=== PATIENT | female | born 1940 | race Caucasian/White ===

== ENCOUNTER → 2017-11-13 10:39 | Outpatient (CLI) | payer MEDICARE, SELFPAY ==
[2017-11-13 12:06] LABS: Add Manual Diff / Slide Review NO; Basophils Percent Auto 1.7 % (0-2); Eosinophils Percent Auto 4.5 % (2-4); Hematocrit 40.7 % (36-46); Hemoglobin 13.7 g/dL (12.0-16.0); Mean Corpuscular HGB Conc 33.7 % (30-36); Mean Corpuscular Hemoglobin 28.1 PG (26-34); Mean Corpuscular Volume 83.4 fL (80-100); Monocytes Percent Auto 7.3 % (3-14); Neutrophils Absolute Auto 3200 /uL (3000-5900); Neutrophils Percent Auto 50.5 % (50-75); Platelet Count 290 X10^3/uL (150-400); Red Blood Cell Count 4.88 X10^6/uL (4.0-5.2); Red Cell Distribution Width 14.2 % (11.6-14.8); White Blood Cell Count 6.3 X10^3/uL (4.5-11.0)
[2017-11-13 12:42] LABS: Carbon Dioxide 28 mmol/L (22-32); Chloride 102 mmol/L (98-107); HEMOLYSIS < 15 (0-50); Potassium 4.1 mmol/L (3.4-5.1); Sodium 142 mmol/L (137-145)
== END ==
PROVIDERS: PCP Physician Assistant; Visit Provider Orthopaedic Surgery
DX: Z01.818 Encounter for other preprocedural examination (principal); M16.0 Bilateral primary osteoarthritis of hip; Z01.812 Encounter for preprocedural laboratory examination
CPT/HCPCS: 36415; 80051; 85025; 93005

== ENCOUNTER 2017-12-08 06:04 | Inpatient (IN) | payer MEDICARE, SELFPAY ==
[2017-11-27 11:01] VITALS: BMI 31.8
[2017-12-08] VITALS (16 sets, daily range): BP systolic 94–173; BP diastolic 48–77; PULSE 50–78; RESP 12–19; TEMP 35.6–36.7; O2SAT 92–99; BMI 31.8
[2017-12-08] MEDS: LACTATED RINGERS 1,000 ML 42 ML IV (06:50)
[2017-12-08] MEDS: CELECOXIB 200 MG CAPSULE PO (07:09)
[2017-12-08] MEDS: PREGABALIN 75 MG CAPSULE PO (07:09)
[2017-12-08] MEDS: ACETAMINOPHEN 325 MG TABLET 975 MG PO ×3 (07:09→21:49)
--- NOTE | 2017-12-08 07:45 | DI.RAD.S_ITS ---
PROCEDURE: XR PELVIS 1-2V INDICATIONS: prosthesis placement TECHNIQUE: 1 view of the lower pelvis acquired. COMPARISON: [facility], , PELVIS 1 OR 2 VIEWS, 01/07/2011, 14:51. FINDINGS: Bones: Patient is status post left hip arthroplasty, with hardware components in expected positions. The hip joint appears congruent. The visualized bony structures appear intact. Prior right hip arthroplasty stable time. Soft tissues: Overlying postoperative changes are noted. No suspicious soft tissue densities. IMPRESSION: Normal postoperative appearance after left total hip arthroplasty, stable appearing previously present right total hip arthroplasty. Dictated by: Eligio Ruiz M.D. on 12/08/2017 at 10:25 Approved by: Eligio Ruiz M.D. on 12/08/2017 at 10:25
--- NOTE | 2017-12-08 07:49 | PM.PREOP ---
Pre-operative Note Interval Note Pre-op Check: Yes History & Physical Reviewed by Physician Changes: No
[2017-12-08] MEDS: CEFAZOLIN 2 GM/100 ML FROZ.PIGGY IV ×3 (07:50→23:58)
[2017-12-08] MEDS: TRANEXAMIC ACID 1,000 MG VIAL 1000 MG INJ ×2 (08:20→09:22)
--- NOTE | 2017-12-08 08:26 | SUR.OPER ---
Lateral on padded OR bed. Gel axillary roll. Arms secured on padded armboard with pillow supporting top arm. Padded hip positioner braces x4 - anterior and posterior chest and pelvis. Additional gel pad used anterior pelvis. Gel pad under bottom leg from knee to foot and secured with tape over sheet.
[2017-12-08] MEDS: BUPIVACAINE 0.25% W/ EPI VIAL 50 ML INJ (08:35)
--- NOTE | 2017-12-08 09:44 | P.OP_ITS ---
Operative Date/Time/Diagnoses Date of procedure: 12/08/17 Time of procedure: 09:39 Pre-op diagnosis: Left hip degenerative joint disease Post-op diagnosis: same Procedure & Clinicians Procedure: Left total hip arthroplasty (CPT code 22768 with design assistant) Same procedure as scheduled: Yes Indications: Patient is an 77-year-old female with severe left hip DJD. The patient has pain with activities and at rest, limited ambulation and activity tolerance, difficulties with ADLs, and failure of conservative treatment. We have discussed the nature of condition, treatment options, risks and benefits, and patient elects to proceed with total hip arthroplasty and gives informed consent. Surgeon: Luis Fernando Ewing Rehabilitation Coordinator: Rubina Villa Anesthesia Type: General and Spinal Operative Notes Closure Type: primary Specimen(s): none sent Implants & Drains: Acetabulum: Villarreal [employer] Nephew R3 acetabular component size 54 mm Femoral component: Villarreal [employer] Nephew Synergy stem size 13 with high offset Femoral head: 36 mm + 0 cobalt chrome Estimated Blood Loss (mL): 100 Blood products transfused: none Procedure in detail: After satisfaction induction of anesthetic, and administration of IV antibiotics, the patient was positioned in the lateral decubitus position with all bony prominences well padded and pelvic position secured using a hip spring inspector positioning device. Left hip and lower extremity prepped and draped in the usual sterile fashion, 1st dose of intravenous tranexamic acid was administered, then a longitudinal incision was created centered over the greater trochanter and carried sharply through the skin and subcutaneous tissues down to the fascia kavita which was divided longitudinally and retracted with a Charnley retractor. External rotators visualize, cut, tagged, and retracted posteriorly, then the capsule was cut in a T-type fashion with the corners tagged and retracted. Hip was dislocated and femoral neck cut made according to preoperative templating. Acetabular retractors then placed, and the acetabular labrum and osteophytes were excised. The acetabulum was then sequentially reamed to 53 mm with an excellent circumferential ream and fit with the trial. The trial component was removed and a permanent size 54 mm Villarreal [employer] Nephew R3 acetabular component was selected, positioned, and impacted with satisfactory position and fixation achieved. Permanent liner was then inserted with the elevated lip directed posteriorly. Soft tissue then removed off the lateral femoral neck in the lateral neck was entered using a box osteotome. T-handled reamers placed down the canal followed by sequential broaching to 13 with the final broach left in place for trial reduction which demonstrated excellent leg length, range of motion, and stability characteristics with a 36 mm +0 trial ball. The trial and broach were removed, and a permanent size 13 high offset Villarreal and Nephew Synergy stem was selected and inserted with excellent position and fixation achieved. Another trial reduction yielded the above characteristics so the trial ball was exchanged for a permanent 36 mm +0 cobalt chrome ball. The hip was irrigated and reduced and excellent leg length range of motion and stability characteristics were achieved and maintained. The hip was copiously irrigated, and the capsule repaired with #2 Ethibond, and the piriformis was repaired back to the greater trochanter with the same. Fascia kavita closed with interrupted #1 Ethibond sutures, and the subcutaneous tissues were closed in 2 layers of 0 Vicryl and 2 0 Vicryl. Skin was closed with eddy and sterile dressings applied. Second dose of tranexamic acid was administered intravenously, and the anesthetic was terminated. Complications: none Condition: stable Disposition: PACU Plan for aftercare: Patient will be admitted to the acute care [facility], and anticipate discharge on postop day 1-2 with follow-up in office in 10-14 days. Outpatient physical therapy will be arranged and patient will continue to observe posterior hip precautions. Patient will continue use of postoperative Lovenox for 10 days postop.
--- NOTE | 2017-12-08 10:22 | SUR.PHASEI ---
REPORT CALLED TO EDDIE HURLEY ON ACUTE CARE
--- NOTE | 2017-12-08 11:14 | PC.NURSE ---
Addendum entered by Flor Wallace R.N. 12/08/17 15:45: Pt has been too drowsy to complete admission assessment through this shift. 2L NC for desating, Pt is able to hold a conversation this afternoon, keep eyes open longer, denies pain, updated Oncoming RN of admission assessment. Updated family for POC, bladder scan for 170mls after no void this afternoon Original Note: 1032- Pt arrived to floor, 2L O2 via NC Spo2 96% RA, drowsy, Spinal effective for pain relief, diminished sensation to BLE, t10 level. Sipping on water, L hip bulky dressing CDI. IVF infusing. Denies nausea.
[2017-12-08] MEDS: LACTATED RINGERS 1,000 ML 125 ML IV (11:18)
--- NOTE | 2017-12-08 16:54 | PT.IIE ---
Current Diagnoses Unilateral primary osteoarthritis, left hip (12/08/17) Surgery Performed Operation Date: 12/08/17 07:45 Actual Procedures p Total Hip Arthroplasty(Left) - Luis Fernando Ewing MD Surgical History (Last Updated 11/27/17 @ 11:26 by Rosina Meza RN) Hx of appendectomy (Acute) Hx of tonsillectomy (Acute) Hx of tubal ligation (Acute) History of total right hip arthroplasty (Resolved 12/2010) Hx of cataract surgery (Resolved 05/2016) Hx of surgical procedure (Resolved 09/2012) Status post tubal ligation Medical History (Last Updated 11/27/17 @ 11:26 by Rosina Meza RN) Anxiety (Acute) Cyst (Acute) Cyst of left kidney (Acute) Edema (Acute) GERD (gastroesophageal reflux disease) (Acute) Hiatal hernia (Acute) Low back pain (Acute) Numbness (Acute) Pneumonia (Acute) Tingling (Acute) UTI (urinary tract infection) (Acute) Asthma (Chronic) Depression (Chronic) Hyperlipemia (Chronic) Insomnia (Chronic) Osteopenia (Chronic) Chickenpox (Resolved) Measles (Resolved) Mumps (Resolved) Physical Therapy Inpatient Evaluation/Re-Eval M1 PT/OT-IP Prior Functional Status Start: 12/08/17 16:42 Freq: NEEDED Status: Active Protocol: Document 12/08/17 16:42 [facility] (Rec: 12/08/17 16:54 [facility] [id number]) Medical Review Prior Functional Status Medical History Reviewed Yes Diet/Fluid Consistency Regular Communication WNL Mobility and Gait indep w/occasional use of cane Activities of Daily Living and IADL's Indep Social History Household Members children Living Arrangements House Number of Floors (Floors) One Floor Number of Stairs To Enter/Railing? Ramp entry Home Environment High Toilet Tub/Shower Doors Home Equipment Front Wheel Walker Tub Transfer Bench Long Handled Sponge Long Handled [place]oe [place] Silver Wrapper Sock Aid Additional Social History Comment Pt has friend (Jacqueline) staying for 2 weeks and family is local and will help as needed. M2 PT-IP Current Condition Start: 12/08/17 16:42 Freq: NEEDED Status: Active Protocol: Document 12/08/17 16:42 [facility] (Rec: 12/08/17 16:54 [facility] [id number]) Physical Therapy Current Condition Current Condition Evaluation Date 12/08/17 Treatment Diagnosis L AJ Onset Date 12/08/17 Precautions Posterior Hip Precautions No Hip Flexion > 90 degrees No Hip Internal Rotation No Hip Adduction Weight Bearing Status Weight Bearing Status Weight Bear as Tolerated M3 PT-IP Subjective Start: 12/08/17 16:42 Freq: NEEDED Status: Active Protocol: Document 12/08/17 16:42 [facility] (Rec: 12/08/17 16:54 [facility] [id number]) Subjective Physical Therapy Visit Type Type Initial Evaluation Visit Start Time 15:45 Visit Stop Time 16:30 Total Visit Minutes 45 Number of STUDIO MUSICIAN Visits 0 Physical Therapy Visit Comments Patient Comments Pt agreeable to get up Patient Goals Hoping to go home Friday Therapy Pain Assessment Pain When Pain Assessed At Rest Pain Present Pain Present Denied Pain M4 PT-IP Mobility and Gait Start: 12/08/17 16:42 Freq: NEEDED Status: Active Protocol: Document 12/08/17 16:42 [facility] (Rec: 12/08/17 16:54 [facility] [id number]) PT-Bed Mobility Assessment Supine to Sit Supine to Sit Standby Assistance Sit to Supine Sit to Supine Standby Assistance Scooting Scooting to Edge of Bed Standby Assistance Scooting Up and Down in Bed Contact Guard Assistance PT-Transfer Assessment Sit to and From Stand Sit to and from Stand Minimal Assistance Equipment Transfer Assistive Device Gait Belt Front Wheeled Walker Orthotic/Prosthetic Devices or Brace: No Comments Mobility Comments Did not transfer d/t pt feeling dizzy. Pt returned sitting with min A PT-Balance Assessment Sitting Balance and Reactions Static Sitting Balance Ability Good Dynamic Sitting Balance Ability Fair Standing Balance and Reactions Static Standing Balance Ability Poor Dynamic Standing Balance Ability Poor M5 PT-IP Objective Assessments Start: 12/08/17 16:42 Freq: NEEDED Status: Active Protocol: Document 12/08/17 16:42 [facility] (Rec: 12/08/17 16:54 [facility] [id number]) Orientation Orientation/Cognition Level of Alertness Alert Gross Range of Motion Lower Extremity ROM Assessment Left Impaired Strength Lower Extremity Strength Assessment Left Impaired Sensation Assessment Sensation Gross Sensation WNL Light Touch Intact Muscle Tone Muscle Tone WNL No M6 PT-IP Treatment Start: 12/08/17 16:42 Freq: NEEDED Status: Active Protocol: Document 12/08/17 16:42 [facility] (Rec: 12/08/17 16:54 [facility] [id number]) Physical Therapy Treatment Exercises Exercises Ankle Pumps Gluteal Sets Quad Sets Education Education Provided Precautions Weight Bearing Status Post-Op Packet Safety M7 PT-IP Assessment and Plan Start: 12/08/17 16:42 Freq: NEEDED Status: Active Protocol: Document 12/08/17 16:42 [facility] (Rec: 12/08/17 16:54 [facility] [id number]) PT Summary Assessment and Plan Potential Rehabilitation Potential Excellent Status of Condition at Evaluation Unstable Summary Impairments ROM Strength Bed Mobility Transfers Gait Activity Tolerance Assessment Summary Pt is motivated to progress with her mobility, but had 100cc of emesis (reported to RN) and lightheadedness with mobility. Supine BP 129/58 to seated 144/97 to 151/73 steated then 138/70 in supine. Goals Bed Mobility Goal Independent Transfer Goal Standby Assistance Gait Goal Standby Assistance Gait Distance 150ft Days to Meet Goals 3 Frequency of Treatment Frequency Of Treatment Twice a Day Treatment Plan Physical Therapy Treatment Plan Bed Mobility Training Transfer Training Gait Training Therapeutic Exercise Neuromuscular Re-ed Other Recommendations and Next Treatment Advance gait as tolerated; Focus review all exercises Recommendations To Nursing Amount of Assist Needed 1 Person Assist Discharge Recommendations PT Discharge Recommendations Home with Assistance Outpatient PT
[2017-12-08] MEDS: DOCUSATE 100 MG CAPSULE PO (21:49)
[2017-12-08] MEDS: ASPIRIN EC 81 MG TABLET PO (21:49)
[2017-12-08] MEDS: PRAMIPEXOLE 0.125 MG TABLET PO (21:50)
[2017-12-09] VITALS (7 sets, daily range): BP systolic 106–133; BP diastolic 48–70; PULSE 65–71; RESP 14–18; TEMP 36.4–36.7; O2SAT 92–98
--- NOTE | 2017-12-09 00:21 | PC.NURSE ---
Addendum entered by James Isaac R.N. 12/09/17 01:35: 0140: Awake, had large emesis of undigested food. Assisted to wash up; clean gown on. Original Note: [employer] Developer Note: 2350: Awake, denies pain in lt hip area. Vital signs stable. Dressing to lt hip cdi. Pt denies numbness or tingling in legs, and is able to flex ankles and knees, and hips. Assisted to reposition. SCDs on. Fresh ice to lt hip.
[2017-12-09 06:39] LABS: Hematocrit 38.1 % (36-46); Hemoglobin 12.6 g/dL (12.0-16.0)
[2017-12-09] MEDS: PANTOPRAZOLE 20 MG TABLET PO (06:45)
--- NOTE | 2017-12-09 07:51 | P.PN_ITS ---
Subjective Date Patient Seen: 12/09/17 Interval history: Patient seen bedside s/p L. AJ POD #1. Patient is doing well , her pain is well controlled but she has not worked with physical therapy yet. Exam Vital Signs (past 8 hours): - 12/09/17 00:18 12/09/17 04:51 Temperature 97.5 F L 97.6 F Pulse Rate 66 65 Respiratory Rate 16 16 Blood Pressure 133/70 108/59 L Pulse Oximetry 98 96 Oxygen Delivery Method Nasal Cannula Oxygen Flow Rate 2 Narrative Exam Narrative: WDWN NAD A&Ox3. Left hip dressing CDI, patient is NVI with full ROM of the ankle and knee. Calf is soft and compressible. Objective Labs Result Diagrams: 12/09/17 06:30 Labs: Laboratory Results - last 24 hr 12/09/17 06:30 Hgb 12.6 Hct 38.1 Assessment & Plan Post-op Postoperative Procedures Operation Date: 12/08/17 07:45 Actual Procedures Side Surgeon p Total Hip Arthroplasty Left Luis Fernando Ewing MD 1. Continue pain management, VTE prophylaxis 2. Continue PT 3. Probable discharge tomorrow if doing well.
--- NOTE | 2017-12-09 09:15 | PT.IPTN ---
Current Diagnoses Unilateral primary osteoarthritis, left hip (12/08/17) Surgery Performed Operation Date: 12/08/17 07:45 Actual Procedures p Total Hip Arthroplasty(Left) - Luis Fernando Ewing MD Physical Therapy Treatment Note M2 PT-IP Current Condition Start: 12/08/17 16:42 Freq: NEEDED Status: Active Protocol: Document 12/08/17 16:42 [facility] (Rec: 12/08/17 16:54 [facility] [id number]) Physical Therapy Current Condition Current Condition Evaluation Date 12/08/17 Treatment Diagnosis L AJ Onset Date 12/08/17 Precautions Posterior Hip Precautions No Hip Flexion > 90 degrees No Hip Internal Rotation No Hip Adduction Weight Bearing Status Weight Bearing Status Weight Bear as Tolerated M3 PT-IP Subjective Start: 12/08/17 16:42 Freq: NEEDED Status: Active Protocol: Document 12/09/17 09:15 AB (Rec: 12/09/17 12:24 AB [id number]) Subjective Physical Therapy Visit Type Type Treatment Note Visit Start Time 09:15 Visit Stop Time 10:00 Total Visit Minutes 45 Number of CRYPTOGRAPHIC VULNERABILITY ANALYST Visits 0 Physical Therapy Visit Comments Patient Comments pt agreeable to do PT Therapy Pain Assessment Pain When Pain Assessed At Rest Pain Present Pain Present Pain Reported Location Left Hip Intensity 1 Scale Used Numeric (1 - 10) Pain Management Techniques Apply Cold Re-positioning Timing of Activity with Medications M4 PT-IP Mobility and Gait Start: 12/08/17 16:42 Freq: NEEDED Status: Active Protocol: Document 12/09/17 09:15 [facility] (Rec: 12/09/17 12:24 AB [id number]) PT-Bed Mobility Assessment Supine to Sit Supine to Sit Standby Assistance Scooting Scooting to Edge of Bed Standby Assistance PT-Transfer Assessment Sit to and From Stand Sit to and from Stand Minimal Assistance Equipment Transfer Assistive Device Gait Belt Front Wheeled Walker Orthotic/Prosthetic Devices or Brace: No Transfers Transfer Destination Toilet Transfer Technique pt ambulated to the toilet using FWW Transfer Ability Level of Assist Minimal Assistance Comments Mobility Comments pt c/o dizziness upon sitting on EOB but decreased after a few minutes. pt stated that she has vertigo and has dizziness all the time. BP: 117/57 sitting on EOB. pt ambulated to the toilet using FWW min A and cues to maintain hip precautions. pt required min A for sit to stand from the toilet using grab bar to assist and cues. pt ambulated using fWW min A towards the sink and was able to maintain standing balance CGA while completing handwashing. Gait Assessment Gait Gait Assistance Required: Minimum Assistance Distance (Feet) 50 Able to Maintain Weight Bearing Status Yes During Gait Assistive Devices Assistive Device Gait Belt Front Wheeled Walker Orthotic/Prosthetic Devices or Brace: No Gait Deviations General Gait Pattern Antalgic Decreased Stride Length Decreased Feet Clearance Factors Limiting Gait Function Factors Limiting Gait Function Decreased Activity Tolerance Decreased Strength Difficulty Following Directions Limited Range of Motion Pain Poor Balance Poor Safety Awareness Comments Gait Comments pt completed ambulation in hallway using FWw ~ 50 ft CGA to min A and cues. presents with antalgic gait with decrease ghazal and requires cues to maintain hip precautions especially with turns. M5 PT-IP Objective Assessments Start: 12/08/17 16:42 Freq: NEEDED Status: Active Protocol: Document 12/08/17 16:42 [facility] (Rec: 12/08/17 16:54 [facility] [id number]) Orientation Orientation/Cognition Level of Alertness Alert Gross Range of Motion Lower Extremity ROM Assessment Left Impaired Strength Lower Extremity Strength Assessment Left Impaired Sensation Assessment Sensation Gross Sensation WNL Light Touch Intact Muscle Tone Muscle Tone WNL No M6 PT-IP Treatment Start: 12/08/17 16:42 Freq: NEEDED Status: Active Protocol: Document 12/09/17 09:15 AB (Rec: 12/09/17 12:24 AB [id number]) Physical Therapy Treatment Education Education Provided Precautions Weight Bearing Status Safety M7 PT-IP Assessment and Plan Start: 12/08/17 16:42 Freq: NEEDED Status: Active Protocol: Document 12/09/17 09:15 AB (Rec: 12/09/17 12:24 AB [id number]) PT Summary Assessment and Plan Potential Rehabilitation Potential Good Summary Impairments Pain ROM Strength Balance Coordination Sensation Tone Cognition Bed Mobility Transfers Gait Activity Tolerance Progress Towards Goals Slow Progress due to Activity Tolerance Assessment Summary pt rquiring one person assist with mobility but will likely improve during hospital stay. stated that her friend can stay with her for ~ 2 weeks and she also has her son in the evenings to assit her. pt is also set up for outpt PT. Goals Bed Mobility Goal Independent Transfer Goal Standby Assistance Gait Goal Standby Assistance Gait Distance 150ft Days to Meet Goals 3 Frequency of Treatment Frequency Of Treatment Twice a Day Treatment Plan Physical Therapy Treatment Plan Bed Mobility Training Transfer Training Gait Training Therapeutic Exercise Neuromuscular Re-ed Other Recommendations and Next Treatment ambulation Focus Recommendations To Nursing Amount of Assist Needed 1 Person Assist Discharge Recommendations PT Discharge Recommendations Home with Assistance Outpatient PT
[2017-12-09] MEDS: ACETAMINOPHEN 325 MG TABLET 975 MG PO ×3 (09:34→21:52)
[2017-12-09] MEDS: ASPIRIN EC 81 MG TABLET PO ×2 (09:35→20:14)
[2017-12-09] MEDS: DOCUSATE 100 MG CAPSULE PO (09:35)
[2017-12-09] MEDS: ENOXAPARIN 40 MG/0.4 ML SYRINGE SUBCUT (09:35)
--- NOTE | 2017-12-09 14:25 | PT.IPTN ---
Current Diagnoses Unilateral primary osteoarthritis, left hip (12/08/17) Surgery Performed Operation Date: 12/08/17 07:45 Actual Procedures p Total Hip Arthroplasty(Left) - Luis Fernando Ewing MD Physical Therapy Treatment Note M2 PT-IP Current Condition Start: 12/08/17 16:42 Freq: NEEDED Status: Active Protocol: Document 12/08/17 16:42 [facility] (Rec: 12/08/17 16:54 [facility] [id number]) Physical Therapy Current Condition Current Condition Evaluation Date 12/08/17 Treatment Diagnosis L AJ Onset Date 12/08/17 Precautions Posterior Hip Precautions No Hip Flexion > 90 degrees No Hip Internal Rotation No Hip Adduction Weight Bearing Status Weight Bearing Status Weight Bear as Tolerated M3 PT-IP Subjective Start: 12/08/17 16:42 Freq: NEEDED Status: Active Protocol: Document 12/09/17 14:25 AB (Rec: 12/09/17 16:23 AB [id number]) Subjective Physical Therapy Visit Type Type Treatment Note Visit Start Time 14:25 Visit Stop Time 14:45 Total Visit Minutes 20 Number of AUTOMOTIVE PARTS PERSON Visits 0 Physical Therapy Visit Comments Patient Comments pt agreeable to do PT Therapy Pain Assessment Pain When Pain Assessed At Rest Pain Present Pain Present Pain Reported Location Left Hip Intensity 4 Scale Used Numeric (1 - 10) Pain Management Techniques Apply Cold Re-positioning Timing of Activity with Medications M4 PT-IP Mobility and Gait Start: 12/08/17 16:42 Freq: NEEDED Status: Active Protocol: Document 12/09/17 14:25 AB (Rec: 12/09/17 16:23 AB [id number]) PT-Bed Mobility Assessment Supine to Sit Supine to Sit Standby Assistance Sit to Supine Sit to Supine Standby Assistance Scooting Scooting to Edge of Bed Standby Assistance PT-Transfer Assessment Sit to and From Stand Sit to and from Stand Standby Assistance Contact Guard Assistance Use of Upper Extremities Equipment Transfer Assistive Device Bed Rail Front Wheeled Walker Orthotic/Prosthetic Devices or Brace: No Comments Mobility Comments pt completed sit <>stand x 5 reps with initial cues for techniques and safety to maintain hip precautions but able to complete with SBA without cues towards end of reps. Gait Assessment Gait Gait Assistance Required: Standby Assistance Distance (Feet) 75 Able to Maintain Weight Bearing Status Yes During Gait Assistive Devices Assistive Device Gait Belt Front Wheeled Walker Orthotic/Prosthetic Devices or Brace: No Gait Deviations General Gait Pattern Antalgic Decreased Stride Length Decreased Feet Clearance Factors Limiting Gait Function Factors Limiting Gait Function Decreased Activity Tolerance Decreased Strength Difficulty Following Directions Limited Range of Motion Pain Poor Balance Poor Safety Awareness M5 PT-IP Objective Assessments Start: 12/08/17 16:42 Freq: NEEDED Status: Active Protocol: Document 12/08/17 16:42 LR (Rec: 12/08/17 16:54 LR [id number]) Orientation Orientation/Cognition Level of Alertness Alert Gross Range of Motion Lower Extremity ROM Assessment Left Impaired Strength Lower Extremity Strength Assessment Left Impaired Sensation Assessment Sensation Gross Sensation WNL Light Touch Intact Muscle Tone Muscle Tone WNL No M6 PT-IP Treatment Start: 12/08/17 16:42 Freq: NEEDED Status: Active Protocol: Document 12/09/17 14:25 AB (Rec: 12/09/17 16:23 AB [id number]) Physical Therapy Treatment Education Education Provided Precautions Weight Bearing Status Safety M7 PT-IP Assessment and Plan Start: 12/08/17 16:42 Freq: NEEDED Status: Active Protocol: Document 12/09/17 14:25 AB (Rec: 12/09/17 16:23 AB [id number]) PT Summary Assessment and Plan Potential Rehabilitation Potential Good Summary Impairments Pain ROM Strength Balance Cognition Bed Mobility Transfers Gait Activity Tolerance Progress Towards Goals Progressing Toward Goals Assessment Summary pt progressing with mobility but continues to require occasional cues to maintain hip precautions. pt plans to go home with friend/son to assist her and has outpt PT set up. Goals Bed Mobility Goal Independent Transfer Goal Standby Assistance Gait Goal Standby Assistance Gait Distance 150ft Days to Meet Goals 3 Frequency of Treatment Frequency Of Treatment Twice a Day Treatment Plan Physical Therapy Treatment Plan Bed Mobility Training Transfer Training Gait Training Therapeutic Exercise Neuromuscular Re-ed Other Recommendations and Next Treatment ambulation Focus Recommendations To Nursing Amount of Assist Needed 1 Person Assist Discharge Recommendations PT Discharge Recommendations Home with Assistance Outpatient PT
--- NOTE | 2017-12-09 14:39 | CM.DANOTE ---
DCP/Assessment: Reviewed chart. Patient is a 77yr old female admitted to [facility] for left AJ performed by Dr. Ewing on 12-08-17. Primary payor is 1)Medicare 2)[facility]. PCP is BILLY Nam. Met with patient explained CM/SW role. Patient's granddaughter/Tamera at bedside. Patient reports that she plans to d/c home when medically stable. Patient hopeful that she can leave tomorrow 12-10-17. Patient has family support in the home at time of d/c. Patient has FWW and does not currently anticipate any d/c planning needs. Patient has outpatient therapy scheduled at [facility] in [place]. Notified patient/family would continue to follow if d/c planning needs were to arise. Patient aware and agreeable. P: Home when stable. Discharge Planning/Care Management CM Discharge Assessment Start: 12/09/17 14:36 Freq: Status: Active Protocol: Document 12/09/17 14:36 KJS (Rec: 12/09/17 14:39 KJS [id number]) Discharge Planning Assessment Assigned Latex Thread Machine Operator CE Mccall Contact Information Erasmo Galvan (son) [phone] or [phone] Advance Directives? Yes Advance Directives on File Yes History Provided By Patient Family Member Has Patient been admitted in last 30 No days? Prior Living Arrangements House Household Members children Independent with ADL's Yes Is patient alert and oriented? Yes Caregiver for Another No DME Already Rented / Owned FWW / Walker Patient/Family Preference OP PT Therapy Barriers to Discharge No Discharge Plan Home Transportation Arrangement Family to provide transport. Referrals Initiated None needed Whiteboard Updated in Patient Room with Yes name and ext. # of Latex Thread Machine Operator Review Status In Process Please Provide Date Initial DC 12/09/17 Assessment Was Performed Next Review Type Continued Stay Review Pre-Anesthesia Assessment Start: 11/27/17 11:01 Freq: Status: Active Protocol: Document 11/27/17 11:01 CAB (Rec: 11/27/17 11:39 CAB [id number]) Pre-Anesthesia Assessment Patient Also Known As (ARACELI) Loan Patient Information Reviewed Via Phone Assessment Assessment Completed With Patient Lab Results BMP/CMP CBC EKG Primary Care Provider Betty Yost Seen Specialist in Last 12 Months Yes Specialist Seen Orthopedist Primary Language Lao Automotive Diagnostic Technician Required No Height 160.02 cm Weight 81.647 kg Body Mass Index (BMI) 31.8 Hearing Ability Hard of Hearing Visual Assist Glasses Dentition Type Teeth, Natural Present Teeth, Broken Teeth, Missing Barriers to Learning Auditory Other Aids No Hx Anesthesia Reactions No Hx Family Anesthesia Reaction No Hx Malignant Hyperthermia No Hx Blood Transfusions No Anesthesia Review Requested No Tool Shaper Set Up Operator No alcohol intake current alcohol intake frequency a few times a month Smoking Status Former smoker Smoking cigarettes per day 2 how long ago did patient quit smoking Quit 1987 Substance Use Type does not use Pain Present Pain Reported Musculoskeletal Symptoms Abnormal Gait Back Pain Difficulty Walking Joint Pain Muscle Spasms Tingling History of Falling (Recent or History of Yes ) Patient is completely paralyzed or No completely immobile Prosthesis or Orthotic Device Cane Mental Status Oriented to own ability Is patient on oxygen? No Does patient have SANCHEZ/SOB Yes: SANCHEZ r/t asthma Hx Sleep Apnea No Suspected Sleep Apnea No Hx Chest Pain No Hx SOB Yes: SANCHEZ r/t asthma, shallow breather Hx Syncope or Dizziness Yes: Intermittent Vertigo Anti-Coagulant Therapy No Has a Treatment Coordinator No Cardiac Testing No Hx Pacemaker/ICD No Pacemaker Rep Required? No Cardiac Clearance Received Not Applicable Diet Type At Home Regular dysphagia No Bladder Pattern Nocturia Urinary Catheter Present No Hx Urinary Self Catheterization No Comment Hx of UTIs Diabetes No Patient No Lactating No Hx Drug Resistant Organism No Presence of External or Internal Medical Yes Devices Comment Right hip prosthesis Have you traveled outside the [facility] in the last 30 days? Marital Status / Lives With children Prior Living Arrangements House Number of Floors (Floors) One Floor Number of Stairs To Enter/Railing? 2 stairs, ramp in place Support System Child/Children Family Friend(s) Does the Patient Have Assistance After Yes Surgery Patient Discharge Plan Description Return Home Comment Friend will stay w/pt upon DC, supportive children in area Feels Safe in Current Environment Yes Been Physically Hurt or Threatened By a No Person in Current Environment Do you have thoughts of harming yourself None or others? Are you currently considering suicide? No Do you have a plan to hurt yourself or No Plan others? Do You Have Any Spiritual Beliefs That No May Affect Your HC Choices? Do You Have Any Cultural Practices That No May Affect Your HC Choices? Spiritual Referral None Comment Religious Who Can We Speak to About Patient's Care Family, friends Identifying Code for Release of Patient Declines to issue Information Health Care Proxy/Next of Kin Lety (daughter in-law), Makeda Delvalle (friend) Health Care Proxy Phone Number Lety: [phone], [facility]: [phone] Emergency Contact Name Lety (daughter in-law), Makeda Delvalle (friend) Emergency Contact Phone Number Lety: [phone], [facility]: [phone] Advance Directives? Yes Advance Directives on File Yes Power of Ceiling Insulation Blower Yes Power of Ceiling Insulation Blower Name Lety (daughter in-law)Makeda (friend) Power of Ceiling Insulation Blower Phone Number Lety: [phone], [facility]: [phone] PAC Instructions Do not shave/clip surgical site Durable medical equipment Medications to take/avoid Nasal antibiotic No ETOH/petroleum product on skin DOS NPO Pre-surgical wash Sturdy shoes/comfortable clothes Do not bring valuables and remove jewelry
[2017-12-09] MEDS: diphenhydrAMINE 25 MG TABLET PO (14:57)
--- NOTE | 2017-12-09 17:47 | PC.NURSE ---
Assumed care of pt form outgoing shift at 1500 this day. Pt uses call light. pt best friend, Jacqueline in room and she will be staying with pt for two weeks after d/c. pt plans to d.c tomorrow. Pt mobility is very good. walking with PT and uses walker. Pt calls, makes needs known. Pt feeling less itchy but face is still flushed at this time. Pt compliant with nursing staff and welcoming to student nurses. will continue to monitor pt for safety. bed alarm on, side rail upx3. encouraged IS use.
[2017-12-09] MEDS: HYDROCODONE/ACET 5/325 TABLET 1 TAB PO (20:12)
[2017-12-09] MEDS: PRAMIPEXOLE 0.125 MG TABLET PO (20:14)
[2017-12-10 00:03] VITALS: BP 152/66; PULSE 71; RESP 18; TEMP 36.4; O2SAT 94
[2017-12-10] MEDS: HYDROCODONE/ACET 5/325 TABLET 1 TAB PO ×2 (01:26→06:07)
[2017-12-10] MEDS: diphenhydrAMINE 25 MG TABLET PO (01:30)
--- NOTE | 2017-12-10 03:54 | PC.NURSE ---
A&OX3. 93% RA. L. hip dressing cdi. pt medicated with 1 tab norco for pain 08/03. pt c/o of some itching around her torso, face is still a little flushed, i gave her 1 tab of benadryl. 1pa to the BR. call light in reach. bed alarm active.
[2017-12-10 04:45] VITALS: BP 120/70; PULSE 60; RESP 15; TEMP 36.4; O2SAT 93
[2017-12-10] MEDS: PANTOPRAZOLE 20 MG TABLET PO (06:05)
--- NOTE | 2017-12-10 07:28 | PM.DS.1 ---
History of Present Illness Date Patient Seen: 12/10/17 Time Patient Seen: 07:18 Chief complaint: total hip arthroplasty left [id number] Narrative: Patient is an 77-year-old female with severe left hip DJD. The patient has pain with activities and at rest, limited ambulation and activity tolerance, difficulties with ADLs, and failure of conservative treatment. We have discussed the nature of condition, treatment options, risks and benefits, and patient elects to proceed with total hip arthroplasty and gives informed consent. Patient is seen bedside. Discharge Providers Date of admission: 12/08/17 06:04 Primary care physician: Betty Yost PA-C Consults: 12/08/17 10:41 Consult to Discharge Planning Routine Comment: Consult to Physical Therapy Evaluate & Treat Comment: Physician Instructions: post op AJ protocol Consult to Respiratory Therapy Evaluate & Treat Comment: Physician Instructions: Evaluate and treat Discharge provider: Marj Reis PA-C Discharge Date: 12/10/17 Summary Discharge Diagnosis: Left hip degenerative joint disease Hospital Course: Patient admitted status post L total hip arthroplasty with Dr. Ewing on 12/08/17. Patient tolerated procedure well with no major complications. Patient transferred to the floor and seen by PT who recommended she be discharged home with outpatient PT. Her pain was well controlled with [place]. Patient is stable and ready for discharge on 12/10/17. Her son and friend is home to assist her upon discharge. Calfs are soft, compressible and nontender bilaterally. Cover site dressing on. Status at Discharge Functional status at discharge: uses cane/walker Overall status at discharge: patient is progressing back to baseline Time Spent with Patient Less than 30 minutes Exam Vital Signs (past 8 hours): - 12/10/17 00:03 12/10/17 04:45 Temperature 97.6 F 97.6 F Pulse Rate 71 60 Respiratory Rate 18 15 Blood Pressure 152/66 H 120/70 Pulse Oximetry 94 93 Oxygen Delivery Method Room Air Oxygen Flow Rate 0 Narrative Exam Narrative: Patient is AOx3. She is laying in bed comfortably without any signs of distress. Radial and dorsalis pedis pulses 2+ and symmetric. Sensation to light touch intact in LE bilaterally. Muscle strength adequate in dorsiflexion, plantarflexion and cloth examiner bilaterally. L Hip dressing is intact with minimal drainage. Calfs are soft, non tender and compressible bilaterally. Patient reports that her pain is manageable at this time. She reports that she would like to go home today; friend and son is home to assist her. She was seen by PT yesterday. Patient is [facility] and reports having filled prescriptions at home. She denies any SOB, chest pain, nausea, vomiting, fever or chills. Objective Labs Result Diagrams: 12/09/17 06:30 Discharge Plan Discharge Plan Patient Disposition: Home Discharge comment: continue use of postoperative Lovenox Discharge Med Rec/Prescriptions Prescriptions: New enoxaparin [Lovenox] 40 mg/0.4 mL Syringe 40 mg subcut DAILY Qty: 8 RF: 0 Continue calcium carbonate-vitamin D3 [Calcium 600 + D(3)] 600 mg calcium- 200 unit Capsule 600 mg PO DAILY RF: 0 magnesium 250 mg Tablet 250 mg PO DAILY RF: 0 Nebulizer Qty: 1 RF: 0 fluticasone [Flovent HFA] 110 mcg/actuation HFA aerosol inhaler 1 puff INHALATION BID Qty: 12 RF: 3 naproxen sodium [Aleve] 220 mg Capsule 220 mg PO BEDTIME PRN (Reason: pain) Qty: 0 RF: 0 triamcinolone acetonide 0.1 % ointment 1 applictn TOP DAILY PRN (Reason: Actinic Keratosis) RF: 0 pramipexole 0.125 mg tablet 0.125 mg PO BEDTIME RF: 0 albuterol sulfate 90 mcg/actuation HFA aerosol inhaler 2 puff INHALATION QID PRN (Reason: Asthma) RF: 0 omeprazole 20 mg Capsule,Delayed Release(Dr/Ec) 20 mg PO DAILY RF: 0 Disabled Parking Permit 1 dev miscellaneous DIRECTED RF: 0 Follow up/Referrals: Luis Fernando Ewing MD [Physician] - 2 Weeks (Follow up at [facility] in 10-[address] Ewing. ) Provider Discharge Instructions Diet: Diet as Tolerated Activity: Maintained on standard posterior hip precautions with weight bearing as tolerated. Use cane/walker until cleared by PT. Cold/Heat Therapy: PRN Skin/Wound/Dressing Care Report to your healthcare provider any signs of infection, such as:: chills, fever, night sweats, increased pain and unusual drainage Dressing: Keep clean and dry Visit Report/Discharge Packet Instructions: DI for Hip Replacement Discharge Data Primary Care Provider: Betty Yost Attending Provider: Luis Fernando Ewing Admit Date/Time: 12/08/17 06:04
--- NOTE | 2017-12-10 07:40 | P.DS_ITS ---
History of Present Illness Date Patient Seen: 12/10/17 Time Patient Seen: 07:18 Chief complaint: total hip arthroplasty left [id number] Narrative: Patient is an 77-year-old female with severe left hip DJD. The patient has pain with activities and at rest, limited ambulation and activity tolerance, difficulties with ADLs, and failure of conservative treatment. We have discussed the nature of condition, treatment options, risks and benefits, and patient elects to proceed with total hip arthroplasty and gives informed consent. Patient is seen bedside. Discharge Providers Date of admission: 12/08/17 06:04 Primary care physician: Betty Yost PA-C Consults: 12/08/17 10:41 Consult to Discharge Planning Routine Comment: Consult to Physical Therapy Evaluate & Treat Comment: Physician Instructions: post op AJ protocol Consult to Respiratory Therapy Evaluate & Treat Comment: Physician Instructions: Evaluate and treat Discharge provider: Marj Reis PA-C Discharge Date: 12/10/17 Summary Discharge Diagnosis: Left hip degenerative joint disease Hospital Course: Patient admitted status post L total hip arthroplasty with Dr. Ewing on 12/08/17. Patient tolerated procedure well with no major complications. Patient transferred to the floor and seen by PT who recommended she be discharged home with outpatient PT. Her pain was well controlled with [place]dom. Patient is stable and ready for discharge on 12/10/17. Her son and friend is home to assist her upon discharge. Calfs are soft, compressible and nontender bilaterally. Cover site dressing on. Status at Discharge Functional status at discharge: uses cane/walker Overall status at discharge: patient is progressing back to baseline Time Spent with Patient Less than 30 minutes Exam Vital Signs (past 8 hours): - 12/10/17 00:03 12/10/17 04:45 Temperature 97.6 F 97.6 F Pulse Rate 71 60 Respiratory Rate 18 15 Blood Pressure 152/66 H 120/70 Pulse Oximetry 94 93 Oxygen Delivery Method Room Air Oxygen Flow Rate 0 Narrative Exam Narrative: Patient is AOx3. She is laying in bed comfortably without any signs of distress. Radial and dorsalis pedis pulses 2+ and symmetric. Sensation to light touch intact in LE bilaterally. Muscle strength adequate in dorsiflexion, plantarflexion and site leasing agent bilaterally. L Hip dressing is intact with minimal drainage. Calfs are soft, non tender and compressible bilaterally. Patient reports that her pain is manageable at this time. She reports that she would like to go home today; friend and son is home to assist her. She was seen by PT yesterday. Patient is [facility] and reports having filled prescriptions at home. She denies any SOB, chest pain, nausea, vomiting, fever or chills. Objective Labs Result Diagrams: 12/09/17 06:30 Discharge Plan Discharge Plan Patient Disposition: Home Discharge comment: continue use of postoperative Lovenox Discharge Med Rec/Prescriptions Prescriptions: New enoxaparin [Lovenox] 40 mg/0.4 mL Syringe 40 mg subcut DAILY Qty: 8 RF: 0 Continue calcium carbonate-vitamin D3 [Calcium 600 + D(3)] 600 mg calcium- 200 unit Capsule 600 mg PO DAILY RF: 0 magnesium 250 mg Tablet 250 mg PO DAILY RF: 0 Nebulizer Qty: 1 RF: 0 fluticasone [Flovent HFA] 110 mcg/actuation HFA aerosol inhaler 1 puff INHALATION BID Qty: 12 RF: 3 naproxen sodium [Aleve] 220 mg Capsule 220 mg PO BEDTIME PRN (Reason: pain) Qty: 0 RF: 0 triamcinolone acetonide 0.1 % ointment 1 applictn TOP DAILY PRN (Reason: Actinic Keratosis) RF: 0 pramipexole 0.125 mg tablet 0.125 mg PO BEDTIME RF: 0 albuterol sulfate 90 mcg/actuation HFA aerosol inhaler 2 puff INHALATION QID PRN (Reason: Asthma) RF: 0 omeprazole 20 mg Capsule,Delayed Release(Dr/Ec) 20 mg PO DAILY RF: 0 Disabled Parking Permit 1 dev miscellaneous DIRECTED RF: 0 Follow up/Referrals: Luis Fernando Ewing MD [Physician] - 2 Weeks (Follow up at [facility] in 10-[address] Ewing. ) Provider Discharge Instructions Diet: Diet as Tolerated Activity: Maintained on standard posterior hip precautions with weight bearing as tolerated. Use cane/walker until cleared by PT. Cold/Heat Therapy: PRN Skin/Wound/Dressing Care Report to your healthcare provider any signs of infection, such as:: chills, fever, night sweats, increased pain and unusual drainage Dressing: Keep clean and dry Visit Report/Discharge Packet Instructions: DI for Hip Replacement Discharge Data Primary Care Provider: Betty Yost Attending Provider: Luis Fernando Ewing Admit Date/Time: 12/08/17 06:04
[2017-12-10 07:50] VITALS: BP 137/65; PULSE 66; RESP 17; TEMP 36.7; O2SAT 93
[2017-12-10] MEDS: ASPIRIN EC 81 MG TABLET PO (08:10)
[2017-12-10] MEDS: DOCUSATE 100 MG CAPSULE PO (08:10)
[2017-12-10] MEDS: ACETAMINOPHEN 325 MG TABLET 975 MG PO (08:10)
[2017-12-10] MEDS: ENOXAPARIN 40 MG/0.4 ML SYRINGE SUBCUT (08:10)
[2017-12-10] MEDS: HYDROMORPHONE 2 MG TABLET PO (10:11)
--- NOTE | 2017-12-10 11:14 | PC.NURSE ---
Discharge: Pt dressed in her own clothes, belongings with son, pain meds given, d/c meds and schedule discussed, follow all precautions, and hydrate. Pt out via wheelchair to POV with HEAVY MACHINERY ASSEMBLER.
== END 2017-12-10 11:16 | disposition home or self-care (01) | DRG 470 ==
PROVIDERS: Admitting Provider Orthopaedic Surgery; Family Provider Physician Assistant; PCP Physician Assistant; Visit Provider Orthopaedic Surgery
PROC: 0SRB0JZ Replacement of Left Hip Joint with Synthetic Substitute, Open Approach (ICD-10-PCS; CPT 27130; principal; 2017-12-08 07:45)
DX: M16.12 Unilateral primary osteoarthritis, left hip (principal); J45.909 Unspecified asthma, uncomplicated; Z87.891 Personal history of nicotine dependence; Z96.641 Presence of right artificial hip joint
CPT/HCPCS: 36415; 72170; 85014; 85018; 94760; 97116; 97530; C1776; J0690; J1100; J1650; J2250; J2274; J2405; J2704

== ENCOUNTER → 2018-04-20 09:20 | Outpatient (CLI) | payer MEDICARE, SELFPAY ==
[2017-12-08 16:08] VITALS: BMI 31.8
[2018-04-20 10:26] LABS: Alanine Aminotransferase 23 IU/L (9-52); Albumin 4.6 g/dL (3.5-5.0); Albumin Globulin Ratio 1.4 (1.0-2.8); Alkaline Phosphatase 149 U/L (38-126); Aspartate Aminotransferase 32 IU/L (14-36); BUN Creatinine Ratio 20.8 (6-22); Bilirubin Total 0.5 mg/dL (0.2-1.3); Blood Urea Nitrogen 25 mg/dL (7-17); Calcium 9.4 mg/dL (8.4-10.2); Carbon Dioxide 28 mmol/L (22-32); Chloride 103 mmol/L (98-107); Estimated Glomerular Filt Rate 43.4 mL/min (>60); Globulin 3.3 g/dL (1.7-4.1); Glucose 89 mg/dL (80-110); HEMOLYSIS < 15 (0-50); Potassium 4.1 mmol/L (3.4-5.1); Sodium 140 mmol/L (137-145); Total Protein 7.9 g/dL (6.3-8.2)
[2018-04-20 10:40] LABS: Thyroid Stimulating Hormone 4.93 uIU/mL (0.47-4.68)
== END ==
PROVIDERS: Family Provider Physician Assistant; PCP Physician Assistant; Visit Provider Physician Assistant
DX: R60.9 Edema, unspecified (principal); R74.8 Abnormal levels of other serum enzymes
CPT/HCPCS: 36415; 80053; 84443

== ENCOUNTER → 2018-04-30 13:31 | Outpatient (REF) | payer MEDICARE, SELFPAY ==
[2017-12-08 16:08] VITALS: BMI 31.8
[2018-04-30 13:33] LABS: Bacteria Urine None Seen
[2018-04-30 14:16] LABS: Appearance Urine UA CLOUDY; Bilirubin Urine UA NEGATIVE (NEGATIVE); Color Urine UA YELLOW; Glucose Urine UA NEGATIVE (Negative); Ketones Urine UA NEGATIVE (NEGATIVE); Leukocyte Esterase Urine UA 2+ (NEGATIVE); Nitrite Urine UA POSITIVE (Negative); Occult Blood Urine UA 3+ (Negative); Protein Urine UA TRACE (Negative); Specific Gravity Urine UA 1.025 (1.000-1.035); Urobilinogen Urine UA 0.2 E.U./dL (0.2); pH Urine UA 5.5 (4.5-8.0)
[2018-04-30 14:18] LABS: Culture Indicated Urine Specimen Cultured; RBC Urine 10-30/HPF (0-5/HPF); WBC Urine 5-10/HPF (0-5/HPF)
== END ==
LOC: LAB 13:31
PROVIDERS: Family Provider Physician Assistant; PCP Physician Assistant; Visit Provider Nurse Practitioner Family
DX: R30.0 Dysuria (principal)
CPT/HCPCS: 81001; 87077; 87086; 87186

== ENCOUNTER → 2018-06-04 08:56 | Outpatient (CLI) | payer MEDICARE, SELFPAY ==
[2017-12-08 16:08] VITALS: BMI 31.8
== END ==
PROVIDERS: Family Provider Physician Assistant; PCP Physician Assistant; Visit Provider Physician Assistant
DX: R39.9 Unspecified symptoms and signs involving the genitourinary system (principal)
CPT/HCPCS: 87077; 87086; 87186

== ENCOUNTER → 2018-06-11 09:31 | Outpatient (CLI) | payer MEDICARE, SELFPAY ==
[2017-12-08 16:08] VITALS: BMI 31.8
[2018-06-11 09:55] LABS: Alanine Aminotransferase 15 IU/L (9-52); Albumin 4.8 g/dL (3.5-5.0); Albumin Globulin Ratio 1.5 (1.0-2.8); Alkaline Phosphatase 149 U/L (38-126); Aspartate Aminotransferase 22 IU/L (14-36); Bilirubin Total 0.5 mg/dL (0.2-1.3); Blood Urea Nitrogen 14 mg/dL (7-17); Calcium 9.4 mg/dL (8.4-10.2); Carbon Dioxide 22 mmol/L (22-32); Chloride 96 mmol/L (98-107); Estimated Glomerular Filt Rate 36.4 mL/min (>60); Globulin 3.3 g/dL (1.7-4.1); Glucose 90 mg/dL (80-110); HEMOLYSIS < 15 (0-50); Potassium 4.1 mmol/L (3.4-5.1); Sodium 134 mmol/L (137-145); Total Protein 8.1 g/dL (6.3-8.2)
[2018-06-11 21:16] LABS: Thyroid Stimulating Hormone 5.56 uIU/mL (0.47-4.68)
== END ==
PROVIDERS: Family Provider Physician Assistant; PCP Physician Assistant; Visit Provider Physician Assistant
DX: N28.9 Disorder of kidney and ureter, unspecified (principal); R53.83 Other fatigue; R74.8 Abnormal levels of other serum enzymes; R79.89 Other specified abnormal findings of blood chemistry; R30.0 Dysuria
CPT/HCPCS: 80053; 84443; 87086

== ENCOUNTER → 2018-06-22 09:24 | Outpatient (CLI) | payer MEDICARE, SELFPAY ==
[2017-12-08 16:08] VITALS: BMI 31.8
[2018-06-22 10:27] LABS: BUN Creatinine Ratio 14.5 (6-22); Blood Urea Nitrogen 16 mg/dL (7-17); Calcium 9.1 mg/dL (8.4-10.2); Carbon Dioxide 30 mmol/L (22-32); Chloride 99 mmol/L (98-107); Glucose 86 mg/dL (80-110); HEMOLYSIS < 15 (0-50); Potassium 3.9 mmol/L (3.4-5.1); Sodium 138 mmol/L (137-145)
[2018-06-22 11:11] LABS: Hepatitis B Surface Antigen NEGATIVE s/c (NEGATIVE)
[2018-06-22 11:15] LABS: Creatinine Urine Random 138.3 mg/dL; Protein (Total) Urine Random 11 mg/dL (0-12); Protein Creatinine Ratio Urine 0.07 GRAM/24H
[2018-06-22 11:28] LABS: Hep C Virus Ab w/Reflex Quant NEGATIVE s/c (NEGATIVE)
[2018-06-24 11:03] LABS: DNA (DS) Antibody < 1 IU/mL (< 5)
[2018-06-24 13:44] LABS: Complement C3 142 mg/dL (83-193)
[2018-06-25 20:01] LABS: ANA Screen, IFA Negative (Negative)
[2018-06-26 14:30] LABS: Hepatitis B Core Antibody Nonreactive (Nonreactive)
[2018-06-27 12:12] LABS: Hepatitis B Surf Ab Qualitativ Nonreactive (Nonreactive)
[2018-06-27 20:47] LABS: ANCA Screen Negative (Negative)
[2018-06-30 21:41] LABS: Albumin 3.9 g/dL (3.8-4.8); Alpha 1 Globulin 0.4 g/dL (0.2-0.3); Alpha 2 Globulin 0.7 g/dL (0.5-0.9); Beta 1 Globulin 0.5 g/dL (0.4-0.6); Gamma Globulin 0.8 g/dL (0.8-1.7); Protein, Total 6.7 g/dL (6.1-8.1)
== END ==
PROVIDERS: Family Provider Physician Assistant; PCP Physician Assistant; Visit Provider Student in an Organized Health Care Education/Training Program
DX: M31.30 Wegener's granulomatosis without renal involvement (principal); M32.10 Systemic lupus erythematosus, organ or system involvement unspecified; N00.9 Acute nephritic syndrome with unspecified morphologic changes; B19.10 Unspecified viral hepatitis B without hepatic coma; B17.10 Acute hepatitis C without hepatic coma; D47.2 Monoclonal gammopathy; R80.9 Proteinuria, unspecified
CPT/HCPCS: 36415; 80048; 82570; 82784; 83520; 84155; 84156; 84165; 86021; 86038; 86160; 86225; 86334; 86704; 86706; 86803; 87340

== ENCOUNTER → 2018-06-26 12:03 | Outpatient (CLI) | payer MEDICARE, SELFPAY ==
[2017-12-08 16:08] VITALS: BMI 31.8
--- NOTE | 2018-06-26 | DI.US.S_ITS ---
PROCEDURE: US RENAL COMPLETE INDICATIONS: CKD TECHNIQUE: Real-time scanning was performed of the kidneys and bladder, with image documentation. COMPARISON: None. FINDINGS: Kidneys: Kidneys are normal in size. Right kidney measures 8.6 cm long; left kidney measures 9.2 cm long. Right renal cortical thickness is 1.3 cm; left renal cortical thickness is 1.5 cm. Renal cortical echotexture is normal. No hydronephrosis or nephrolithiasis. No suspicious solid mass lesions. Left renal cyst measuring up to 3.2 cm. Bladder: Pre-void bladder volume is 151 mL. Post-void residual is a 13 mL. Pre-void images demonstrate no intraluminal masses or stones. On pre-void images, both of the ureteral jets are noted with color Doppler interrogation. (Of note, ureteral jets may not be detectable in up to 25% of cases due to insufficient differences in specific gravity between ureteral and bladder urine). Miscellaneous: No free pelvic fluid. IMPRESSION: Simple appearing left renal cyst. Dictated by: Ramone Cobb M.D. on 06/26/2018 at 13:22 Approved by: Ramone Cobb M.D. on 06/26/2018 at 13:24
== END ==
PROVIDERS: Family Provider Physician Assistant; PCP Physician Assistant; Visit Provider Student in an Organized Health Care Education/Training Program
DX: N18.9 Chronic kidney disease, unspecified (principal); N28.1 Cyst of kidney, acquired
CPT/HCPCS: 76770

== ENCOUNTER → 2018-07-07 12:51 | Outpatient (CLI) | payer MEDICARE, SELFPAY ==
[2017-12-08 16:08] VITALS: BMI 31.8
[2018-07-07 13:46] LABS: Add Manual Diff / Slide Review NO; Basophils Absolute Auto 100 /uL (0-100); Basophils Percent Auto 1.7 % (0-2); Eosinophils Absolute Auto 200 /uL (0-450); Eosinophils Percent Auto 4.5 % (2-4); Hematocrit 42.2 % (36-46); Hemoglobin 13.9 g/dL (12.0-16.0); Lymphocytes Absolute Auto 2200 /uL (1100-4500); Lymphocytes Percent Auto 39.8 % (25-40); Mean Corpuscular HGB Conc 32.9 % (30-36); Mean Corpuscular Hemoglobin 27.4 PG (26-34); Mean Corpuscular Volume 83.2 fL (80-100); Monocytes Absolute Auto 500 /uL (0-900); Monocytes Percent Auto 8.5 % (3-14); Neutrophils Absolute Auto 2500 /uL (1500-7000); Neutrophils Percent Auto 45.5 % (50-75); Platelet Count 286 X10^3/uL (150-400); Red Blood Cell Count 5.07 X10^6/uL (4.0-5.2); Red Cell Distribution Width 15.3 % (11.6-14.8); White Blood Cell Count 5.5 X10^3/uL (4.5-11.0)
[2018-07-07 14:37] LABS: BUN Creatinine Ratio 10.9 (6-22); Blood Urea Nitrogen 12 mg/dL (7-17); Calcium 9.1 mg/dL (8.4-10.2); Carbon Dioxide 28 mmol/L (22-32); Chloride 100 mmol/L (98-107); Glucose 83 mg/dL (80-110); HEMOLYSIS < 15 (0-50); Phosphorous 3.8 mg/dL (2.8-4.1); Potassium 3.9 mmol/L (3.4-5.1); Sodium 139 mmol/L (137-145)
[2018-07-07 14:39] LABS: Creatinine Urine Random 113.7 mg/dL; Protein (Total) Urine Random 7 mg/dL (0-12); Protein Creatinine Ratio Urine 0.06 GRAM/24H
[2018-07-09 14:39] LABS: Parathyroid Hormone Int 104 pg/mL (14-64)
== END ==
PROVIDERS: Family Provider Physician Assistant; PCP Physician Assistant; Visit Provider Student in an Organized Health Care Education/Training Program
DX: R80.9 Proteinuria, unspecified (principal); N05.9 Unspecified nephritic syndrome with unspecified morphologic changes; D70.9 Neutropenia, unspecified; D63.1 Anemia in chronic kidney disease; E83.30 Disorder of phosphorus metabolism, unspecified; N25.81 Secondary hyperparathyroidism of renal origin
CPT/HCPCS: 36415; 80048; 82570; 83970; 84100; 84156; 85025

== ENCOUNTER → 2018-07-28 10:40 | Outpatient (CLI) | payer MEDICARE, SELFPAY ==
[2017-12-08 16:08] VITALS: BMI 31.8
[2018-07-28 12:11] LABS: Thyroid Stimulating Hormone 2.35 uIU/mL (0.47-4.68)
== END ==
PROVIDERS: PCP Physician Assistant; Visit Provider Physician Assistant
DX: E03.9 Hypothyroidism, unspecified (principal)
CPT/HCPCS: 36415; 84443

== ENCOUNTER → 2019-01-14 09:20 | Outpatient (CLI) | payer MEDICARE, SELFPAY ==
[2017-12-08 16:08] VITALS: BMI 31.8
[2019-01-14 09:59] LABS: Hemoglobin 13.5 g/dL (12.0-16.0); Mean Corpuscular HGB Conc 33.8 % (30-36); Mean Corpuscular Hemoglobin 28.1 PG (26-34); Mean Corpuscular Volume 83.1 fL (80-100); Platelet Count 254 X10^3/uL (150-400); Red Blood Cell Count 4.82 X10^6/uL (4.0-5.2); Red Cell Distribution Width 14.7 % (11.6-14.8); White Blood Cell Count 4.6 X10^3/uL (4.5-11.0)
[2019-01-14 10:23] LABS: BUN Creatinine Ratio 16.4 (6-22); Blood Urea Nitrogen 18 mg/dL (7-17); Calcium 9.2 mg/dL (8.4-10.2); Carbon Dioxide 29 mmol/L (22-32); Chloride 101 mmol/L (98-107); Glucose 94 mg/dL (80-110); HEMOLYSIS < 15 (0-50); Potassium 4.4 mmol/L (3.4-5.1); Sodium 137 mmol/L (137-145)
[2019-01-14 10:39] LABS: Creatinine Urine Random 96.1 mg/dL; Protein (Total) Urine Random 16 mg/dL (0-12); Protein Creatinine Ratio Urine 0.16 GRAM/24H
[2019-01-16 16:14] LABS: Parathyroid Hormone Int 31 pg/mL (14-64)
== END ==
PROVIDERS: PCP Physician Assistant; Visit Provider Student in an Organized Health Care Education/Training Program
DX: R80.9 Proteinuria, unspecified (principal); D70.9 Neutropenia, unspecified; D63.1 Anemia in chronic kidney disease; N05.9 Unspecified nephritic syndrome with unspecified morphologic changes; N25.81 Secondary hyperparathyroidism of renal origin
CPT/HCPCS: 36415; 80048; 82570; 83970; 84156; 85027

== ENCOUNTER → 2019-03-29 15:40 | Outpatient (CLI) | payer MEDICARE, SELFPAY ==
[2017-12-08 16:08] VITALS: BMI 31.8
[2019-03-29 17:44] LABS: Appearance Urine UA CLEAR; Bilirubin Urine UA NEGATIVE (NEGATIVE); Color Urine UA YELLOW; Glucose Urine UA NEGATIVE (Negative); Ketones Urine UA NEGATIVE (NEGATIVE); Leukocyte Esterase Urine UA NEGATIVE (NEGATIVE); Nitrite Urine UA NEGATIVE (Negative); Occult Blood Urine UA 1+ (Negative); Protein Urine UA NEGATIVE (Negative); Specific Gravity Urine UA 1.015 (1.000-1.035); Urobilinogen Urine UA 0.2 E.U./dL (0.2)
[2019-03-29 17:49] LABS: pH Urine UA 7.5 (4.5-8.0)
[2019-03-29 18:02] LABS: Amorphous Sediment Urine 1+; RBC Urine 5-10/HPF (0-5/HPF); Squamous Epithelial Cell Urine 5-10 /HPF (0-5/HPF); WBC Urine 5-10/HPF (0-5/HPF)
[2019-03-29 18:03] LABS: Bacteria Urine Occasional (0-1); Culture Indicated Urine Specimen Cultured
== END ==
PROVIDERS: PCP Physician Assistant; Referring Provider Physician Assistant; Visit Provider Physician Assistant
DX: R39.9 Unspecified symptoms and signs involving the genitourinary system (principal); R39.89 Other symptoms and signs involving the genitourinary system
CPT/HCPCS: 81001; 87077; 87086; 87147

== ENCOUNTER → 2019-04-05 11:20 | Outpatient (CLI) | payer MEDICARE, SELFPAY ==
[2017-12-08 16:08] VITALS: BMI 31.8
[2019-04-05 14:58] LABS: Appearance Urine UA CLOUDY; Bilirubin Urine UA NEGATIVE (NEGATIVE); Color Urine UA YELLOW; Glucose Urine UA NEGATIVE (Negative); Ketones Urine UA NEGATIVE (NEGATIVE); Leukocyte Esterase Urine UA TRACE (NEGATIVE); Nitrite Urine UA NEGATIVE (Negative); Occult Blood Urine UA 2+ (Negative); Protein Urine UA NEGATIVE (Negative); Urobilinogen Urine UA 0.2 E.U./dL (0.2)
[2019-04-05 15:14] LABS: Bacteria Urine Occasional (0-1); RBC Urine 10-30/HPF (0-5/HPF); Squamous Epithelial Cell Urine 1-5 /HPF (0-5/HPF); WBC Urine 1-5/HPF (0-5/HPF)
== END ==
PROVIDERS: PCP Physician Assistant; Referring Provider Physician Assistant; Visit Provider Physician Assistant
DX: N39.0 Urinary tract infection, site not specified (principal); R30.0 Dysuria
CPT/HCPCS: 81001

== ENCOUNTER → 2019-04-19 18:51 | Outpatient (ROUT) | payer MEDICARE, SELFPAY ==
[2017-12-08 16:08] VITALS: BMI 31.8
[2019-04-19 18:53] LABS: RBC Urine None Seen (0-5/HPF)
[2019-04-19 19:04] LABS: Appearance Urine UA SL CLOUDY; Bilirubin Urine UA NEGATIVE (NEGATIVE); Color Urine UA YELLOW; Glucose Urine UA NEGATIVE (Negative); Ketones Urine UA NEGATIVE (NEGATIVE); Leukocyte Esterase Urine UA 3+ (NEGATIVE); Nitrite Urine UA POSITIVE (Negative); Occult Blood Urine UA 2+ (Negative); Protein Urine UA NEGATIVE (Negative); Urobilinogen Urine UA 0.2 E.U./dL (0.2)
[2019-04-19 19:06] LABS: pH Urine UA 7.5 (4.5-8.0)
[2019-04-19 19:11] LABS: Bacteria Urine Many (>30); Culture Indicated Urine Specimen Cultured; Squamous Epithelial Cell Urine 0-1 /HPF (0-5/HPF); Transitional Epi Cells Urine 0-1/HPF (0-5/HPF); WBC Urine 30-100/HPF (0-5/HPF)
== END ==
PROVIDERS: PCP Physician Assistant
DX: N30.01 Acute cystitis with hematuria (principal)
CPT/HCPCS: 81001; 87077; 87086; 87186

== ENCOUNTER → 2019-07-12 15:07 | Outpatient (CLI) | payer MEDICARE, SELFPAY ==
[2017-12-08 16:08] VITALS: BMI 31.8
== END ==
PROVIDERS: PCP Family Medicine; Visit Provider Family Medicine
DX: N30.01 Acute cystitis with hematuria (principal)
CPT/HCPCS: 87077; 87086; 87186

== ENCOUNTER → 2019-07-21 12:18 | Outpatient (CLI) | payer MEDICARE, SELFPAY ==
[2017-12-08 16:08] VITALS: BMI 31.8
[2019-07-21 13:32] LABS: Add Manual Diff / Slide Review NO; Basophils Absolute Auto 100 /uL (0-100); Basophils Percent Auto 1.8 % (0-2); Eosinophils Absolute Auto 200 /uL (0-450); Eosinophils Percent Auto 4.7 % (2-4); Hematocrit 38.8 % (36-46); Hemoglobin 12.9 g/dL (12.0-16.0); Lymphocytes Absolute Auto 1800 /uL (1100-4500); Mean Corpuscular HGB Conc 33.2 % (30-36); Mean Corpuscular Hemoglobin 27.8 PG (26-34); Mean Corpuscular Volume 83.8 fL (80-100); Monocytes Absolute Auto 300 /uL (0-900); Monocytes Percent Auto 6.6 % (3-14); Neutrophils Absolute Auto 2400 /uL (1500-7000); Neutrophils Percent Auto 49.9 % (50-75); Platelet Count 292 X10^3/uL (150-400); Red Blood Cell Count 4.62 X10^6/uL (4.0-5.2); Red Cell Distribution Width 14.7 % (11.6-14.8); White Blood Cell Count 4.7 X10^3/uL (4.5-11.0)
[2019-07-21 13:45] LABS: Alanine Aminotransferase 87 IU/L (<35); Albumin 4.2 g/dL (3.5-5.0); Albumin Globulin Ratio 1.4 (1.0-2.8); Alkaline Phosphatase 271 U/L (38-126); Aspartate Aminotransferase 93 IU/L (14-36); Bilirubin Total 0.5 mg/dL (0.2-1.3); Blood Urea Nitrogen 24 mg/dL (7-17); Calcium 9.4 mg/dL (8.4-10.2); Carbon Dioxide 27 mmol/L (22-32); Chloride 101 mmol/L (98-107); Cholesterol 186 mg/dL (140-199); Globulin 3.1 g/dL (1.7-4.1); Glucose 113 mg/dL (80-110); HDL Cholesterol 62 mg/dL (40-60); HEMOLYSIS < 15 (0-50); LDL Cholesterol Calculated 101 mg/dL (<100); Potassium 4.2 mmol/L (3.4-5.1); Sodium 137 mmol/L (137-145); Total Protein 7.3 g/dL (6.3-8.2); Triglycerides 115 mg/dL (35-150)
[2019-07-21 14:14] LABS: Thyroid Stimulating Hormone 2.62 uIU/mL (0.47-4.68)
[2019-07-21 15:43] LABS: Creatinine Urine Random 82.8 mg/dL; Protein (Total) Urine Random 9 mg/dL (0-12)
[2019-07-22 07:08] LABS: Parathyroid Hormone Int 62 pg/mL (15-65)
== END ==
PROVIDERS: Physician Assistant; PCP Family Medicine; Referring Provider Student in an Organized Health Care Education/Training Program; Visit Provider Student in an Organized Health Care Education/Training Program
DX: N05.9 Unspecified nephritic syndrome with unspecified morphologic changes (principal); D70.9 Neutropenia, unspecified; D63.1 Anemia in chronic kidney disease; N25.81 Secondary hyperparathyroidism of renal origin; R80.9 Proteinuria, unspecified; E78.5 Hyperlipidemia, unspecified; E03.9 Hypothyroidism, unspecified; N18.9 Chronic kidney disease, unspecified; R74.8 Abnormal levels of other serum enzymes
CPT/HCPCS: 36415; 80053; 80061; 82570; 83970; 84156; 84443; 85025

== ENCOUNTER → 2019-09-09 07:04 | Outpatient (CLI) | payer MEDICARE, SELFPAY ==
[2017-12-08 16:08] VITALS: BMI 31.8
[2019-09-09 08:58] LABS: Hemoglobin A1C% w Est Avg Glu 5.6 % (4.0-6.0)
[2019-09-09 09:26] LABS: Alanine Aminotransferase 15 IU/L (<35); Albumin 4.2 g/dL (3.5-5.0); Albumin Globulin Ratio 1.6 (1.0-2.8); Alkaline Phosphatase 137 U/L (38-126); Aspartate Aminotransferase 28 IU/L (14-36); BUN Creatinine Ratio 13.2 (6-22); Bilirubin Total 0.5 mg/dL (0.2-1.3); Blood Urea Nitrogen 17 mg/dL (7-17); Calcium 9.5 mg/dL (8.4-10.2); Carbon Dioxide 27 mmol/L (22-32); Chloride 101 mmol/L (98-107); Cholesterol 203 mg/dL (140-199); Estimated Glomerular Filt Rate 39.9 mL/min (>60); Globulin 2.6 g/dL (1.7-4.1); Glucose 88 mg/dL (80-110); HDL Cholesterol 61 mg/dL (40-60); HEMOLYSIS < 15 (0-50); LDL Cholesterol Calculated 121 mg/dL (<100); Potassium 4.6 mmol/L (3.4-5.1); Sodium 136 mmol/L (137-145); Total Protein 6.8 g/dL (6.3-8.2); Triglycerides 107 mg/dL (35-150)
[2019-09-09 09:52] LABS: Thyroid Stimulating Hormone 2.09 uIU/mL (0.47-4.68)
[2019-09-09 10:26] LABS: Creatinine Urine Random 170.1 mg/dL; Microalbumi Creatinin Ratio Ur 5.8 ug/mg CR (<30)
== END ==
PROVIDERS: PCP Family Medicine; Referring Provider Family Medicine; Visit Provider Family Medicine
DX: I10 Essential (primary) hypertension (principal); R74.8 Abnormal levels of other serum enzymes; E78.5 Hyperlipidemia, unspecified; R73.09 Other abnormal glucose
CPT/HCPCS: 36415; 80053; 80061; 82043; 82570; 83036; 84439; 84443

== ENCOUNTER → 2019-12-13 11:50 | Outpatient (CLI) | payer MEDICARE, SELFPAY ==
[2017-12-08 16:08] VITALS: BMI 31.8
== END ==
PROVIDERS: PCP Family Medicine; Visit Provider Family Medicine
DX: R30.0 Dysuria (principal)
CPT/HCPCS: 87077; 87086; 87186

== ENCOUNTER → 2019-12-18 09:53 | Outpatient (CLI) | payer MEDICARE, SELFPAY ==
[2017-12-08 16:08] VITALS: BMI 31.8
[2019-12-18 11:05] LABS: Add Manual Diff / Slide Review NO; Basophils Absolute Auto 100 /uL (0-100); Basophils Percent Auto 1.3 % (0-2); Eosinophils Absolute Auto 200 /uL (0-450); Eosinophils Percent Auto 3.8 % (2-4); Hematocrit 39.4 % (36-46); Lymphocytes Absolute Auto 1800 /uL (1100-4500); Lymphocytes Percent Auto 33.7 % (25-40); Mean Corpuscular Hemoglobin 27.8 PG (26-34); Monocytes Absolute Auto 400 /uL (0-900); Monocytes Percent Auto 6.8 % (3-14); Neutrophils Absolute Auto 2900 /uL (1500-7000); Neutrophils Percent Auto 54.4 % (50-75); Platelet Count 301 X10^3/uL (150-400); Red Blood Cell Count 4.69 X10^6/uL (4.0-5.2); Red Cell Distribution Width 14.8 % (11.6-14.8); White Blood Cell Count 5.3 X10^3/uL (4.5-11.0)
[2019-12-18 11:46] LABS: BUN Creatinine Ratio 11.3 (6-22); Blood Urea Nitrogen 14 mg/dL (7-17); Calcium 9.2 mg/dL (8.4-10.2); Carbon Dioxide 31 mmol/L (22-32); Chloride 99 mmol/L (98-107); Estimated Glomerular Filt Rate 41.7 mL/min (>60); Glucose 94 mg/dL (80-110); HEMOLYSIS < 15 (0-50); Potassium 4.3 mmol/L (3.4-5.1); Sodium 135 mmol/L (137-145)
[2019-12-18 11:48] LABS: Creatinine Urine Random 124.7 mg/dL; Protein (Total) Urine Random 13 mg/dL (0-12)
[2019-12-19 08:25] LABS: Parathyroid Hormone Int 65 pg/mL (15-65)
== END ==
PROVIDERS: PCP Family Medicine; Referring Provider Student in an Organized Health Care Education/Training Program; Visit Provider Student in an Organized Health Care Education/Training Program
DX: R80.9 Proteinuria, unspecified (principal); N05.9 Unspecified nephritic syndrome with unspecified morphologic changes; D70.9 Neutropenia, unspecified; D63.1 Anemia in chronic kidney disease; N25.81 Secondary hyperparathyroidism of renal origin
CPT/HCPCS: 36415; 80048; 82570; 83970; 84156; 85025

== ENCOUNTER → 2019-12-22 15:47 | Outpatient (CLI) | payer MEDICARE, SELFPAY ==
[2017-12-08 16:08] VITALS: BMI 31.8
== END ==
PROVIDERS: PCP Family Medicine; Visit Provider Family Medicine
DX: N39.0 Urinary tract infection, site not specified (principal)
CPT/HCPCS: 87077; 87086; 87186

== ENCOUNTER → 2020-05-18 12:19 | Outpatient (CLI) | payer MEDICARE, SELFPAY ==
[2017-12-08 16:08] VITALS: BMI 31.8
[2020-05-18 12:44] LABS: Add Manual Diff / Slide Review NO; Basophils Absolute Auto 100 /uL (0-100); Basophils Percent Auto 1.2 % (0-2); Eosinophils Absolute Auto 400 /uL (0-450); Eosinophils Percent Auto 5.6 % (2-4); Hematocrit 39.2 % (36-46); Hemoglobin 12.9 g/dL (12.0-16.0); Lymphocytes Absolute Auto 1700 /uL (1100-4500); Lymphocytes Percent Auto 27.9 % (25-40); Mean Corpuscular HGB Conc 32.9 % (30-36); Mean Corpuscular Hemoglobin 27.7 PG (26-34); Mean Corpuscular Volume 84.4 fL (80-100); Monocytes Absolute Auto 400 /uL (0-900); Monocytes Percent Auto 6.7 % (3-14); Neutrophils Absolute Auto 3700 /uL (1500-7000); Neutrophils Percent Auto 58.6 % (50-75); Platelet Count 269 X10^3/uL (150-400); Red Blood Cell Count 4.65 X10^6/uL (4.0-5.2); Red Cell Distribution Width 14.3 % (11.6-14.8); White Blood Cell Count 6.3 X10^3/uL (4.5-11.0)
[2020-05-18 13:03] LABS: Blood Urea Nitrogen 23 mg/dL (7-17); Calcium 9.3 mg/dL (8.4-10.2); Carbon Dioxide 29 mmol/L (22-32); Chloride 102 mmol/L (98-107); Estimated Glomerular Filt Rate 45.4 mL/min (>60); Glucose 95 mg/dL (80-110); HEMOLYSIS < 15 (0-50); Potassium 4.2 mmol/L (3.4-5.1); Sodium 138 mmol/L (137-145)
[2020-05-18 13:26] LABS: Creatinine Urine Random 121.7 mg/dL; Protein (Total) Urine Random 12 mg/dL (0-12); Protein Creatinine Ratio Urine 0.09 GRAM/24H
[2020-05-19 07:36] LABS: Parathyroid Hormone Int 73 pg/mL (15-65)
== END ==
PROVIDERS: PCP Family Medicine; Referring Provider Student in an Organized Health Care Education/Training Program; Visit Provider Student in an Organized Health Care Education/Training Program
DX: D70.9 Neutropenia, unspecified (principal); D63.1 Anemia in chronic kidney disease; N05.9 Unspecified nephritic syndrome with unspecified morphologic changes; N25.81 Secondary hyperparathyroidism of renal origin
CPT/HCPCS: 36415; 80048; 82570; 83970; 84156; 85025

== ENCOUNTER → 2020-05-26 12:20 | Outpatient (CLI) | payer MEDICARE, SELFPAY ==
[2017-12-08 16:08] VITALS: BMI 31.8
[2020-05-26] MEDS: COVID-19 VACC #1, MRNA(MOD) 100 MCG/0.5 ML VIAL IM (12:30)
== END ==
PROVIDERS: PCP Family Medicine; Visit Provider Internal Medicine
DX: Z23 Encounter for immunization (principal)
CPT/HCPCS: 0011A; 91301

== ENCOUNTER → 2020-06-23 12:17 | Outpatient (CLI) | payer MEDICARE, SELFPAY ==
[2017-12-08 16:08] VITALS: BMI 31.8
[2020-06-23] MEDS: COVID-19 VACC #2, MRNA(MOD) 100 MCG/0.5 ML VIAL IM (12:29)
== END ==
PROVIDERS: PCP Family Medicine; Visit Provider Internal Medicine
DX: Z23 Encounter for immunization (principal)
CPT/HCPCS: 0012A; 91301

== ENCOUNTER → 2020-09-08 10:48 | Outpatient (CLI) | payer MEDICARE, SELFPAY ==
[2017-12-08 16:08] VITALS: BMI 31.8
[2020-09-08 13:15] LABS: Appearance Urine UA CLOUDY; Bilirubin Urine UA NEGATIVE (NEGATIVE); Color Urine UA YELLOW; Glucose Urine UA NEGATIVE (Negative); Ketones Urine UA NEGATIVE (NEGATIVE); Leukocyte Esterase Urine UA 2+ (NEGATIVE); Nitrite Urine UA NEGATIVE (Negative); Occult Blood Urine UA 3+ (Negative); Protein Urine UA 2+ (Negative); Specific Gravity Urine UA 1.015 (1.000-1.035); Urobilinogen Urine UA 0.2 E.U./dL (0.2)
[2020-09-08 13:20] LABS: pH Urine UA 6.5 (4.5-8.0)
[2020-09-08 13:22] LABS: Amorphous Sediment Urine 2+; RBC Urine 1-5/HPF (0-5/HPF); WBC Urine 5-10/HPF (0-5/HPF)
[2020-09-08 13:23] LABS: Bacteria Urine Moderate (10-30); Culture Indicated Urine Specimen Cultured
== END ==
PROVIDERS: PCP Family Medicine; Referring Provider Family Medicine; Visit Provider Family Medicine
DX: N39.0 Urinary tract infection, site not specified (principal)
CPT/HCPCS: 81001; 87077; 87086; 87186

== ENCOUNTER → 2020-09-24 14:03 | Outpatient (CLI) | payer MEDICARE, SELFPAY ==
[2017-12-08 16:08] VITALS: BMI 31.8
== END ==
PROVIDERS: PCP Family Medicine; Visit Provider Student in an Organized Health Care Education/Training Program
DX: R35.0 Frequency of micturition (principal)
CPT/HCPCS: 87077; 87086; 87186

== ENCOUNTER → 2020-10-28 08:25 | Outpatient (CLI) | payer MEDICARE, SELFPAY ==
[2017-12-08 16:08] VITALS: BMI 31.8
[2020-10-28 09:31] LABS: Add Manual Diff / Slide Review NO; Basophils Absolute Auto 0 /uL (0-100); Basophils Percent Auto 0.9 % (0-2); Eosinophils Absolute Auto 200 /uL (0-450); Eosinophils Percent Auto 4.6 % (2-4); Hematocrit 41.3 % (36-46); Hemoglobin 13.7 g/dL (12.0-16.0); Lymphocytes Absolute Auto 1800 /uL (1100-4500); Lymphocytes Percent Auto 34.5 % (25-40); Mean Corpuscular HGB Conc 33.1 % (30-36); Mean Corpuscular Hemoglobin 27.7 PG (26-34); Mean Corpuscular Volume 83.6 fL (80-100); Monocytes Absolute Auto 400 /uL (0-900); Neutrophils Absolute Auto 2700 /uL (1500-7000); Platelet Count 282 X10^3/uL (150-400); Red Blood Cell Count 4.94 X10^6/uL (4.0-5.2); Red Cell Distribution Width 15.2 % (11.6-14.8); White Blood Cell Count 5.2 X10^3/uL (4.5-11.0)
[2020-10-28 09:32] LABS: Hemoglobin 13.7 g/dL (12.0-16.0)
[2020-10-28 09:47] LABS: Alanine Aminotransferase 11 IU/L (<35); Albumin 4.3 g/dL (3.5-5.0); Albumin Globulin Ratio 1.7 (1.0-2.8); Alkaline Phosphatase 132 U/L (38-126); Aspartate Aminotransferase 24 IU/L (14-36); BUN Creatinine Ratio 12.6 (6-22); Bilirubin Total 0.6 mg/dL (0.2-1.3); Blood Urea Nitrogen 15 mg/dL (7-17); Calcium 9.4 mg/dL (8.4-10.2); Carbon Dioxide 28 mmol/L (22-32); Chloride 101 mmol/L (98-107); Estimated Glomerular Filt Rate 43.6 mL/min (>60); Globulin 2.6 g/dL (1.7-4.1); Glucose 93 mg/dL (80-110); HEMOLYSIS < 15 (0-50); Potassium 4.5 mmol/L (3.4-5.1); Sodium 137 mmol/L (137-145); Total Protein 6.9 g/dL (6.3-8.2)
[2020-10-28 09:52] LABS: Creatinine Urine Random 166.1 mg/dL
[2020-10-28 09:52] LABS: Creatinine Urine Random 166.5 mg/dL; Protein (Total) Urine Random 11 mg/dL (0-12); Protein Creatinine Ratio Urine 0.06 GRAM/24H
[2020-10-28 09:55] LABS: Microalbumi Creatinin Ratio Ur 28.2 ug/mg CR (<30); Microalbumin Urine Random 4.7 mg/dL (0-1.6)
[2020-10-28 14:48] LABS: Free T4, Direct Thyroxine 1.78 ng/dL (0.78-2.19)
[2020-10-28 15:02] LABS: Thyroid Stimulating Hormone 1.87 uIU/mL (0.47-4.68)
[2020-10-29 10:38] LABS: Parathyroid Hormone Int 69 pg/mL (15-65)
== END ==
PROVIDERS: PCP Family Medicine; Referring Provider Family Medicine; Visit Provider Family Medicine
DX: N39.0 Urinary tract infection, site not specified (principal); I10 Essential (primary) hypertension; E03.9 Hypothyroidism, unspecified; N18.9 Chronic kidney disease, unspecified; E78.5 Hyperlipidemia, unspecified
CPT/HCPCS: 36415; 80053; 82043; 82570; 83970; 84156; 84439; 84443; 85014; 85018; 85025

== ENCOUNTER → 2021-01-01 11:06 | Outpatient (CLI) | payer MEDICARE, SELFPAY ==
[2017-12-08 16:08] VITALS: BMI 31.8
--- NOTE | 2021-01-01 11:07 | DI.US.S_ITS ---
PROCEDURE: US THYROID INDICATIONS: PERSISTENT ELEVATED PTH, RULE OUT ADENOMA TECHNIQUE: Real-time scanning was performed of the thyroid gland, with image documentation. COMPARISON: None. FINDINGS: Right: Thyroid lobe measures 4.4 x 1.3 x 1.3 cm, and is homogeneous in echotexture. Left: Thyroid lobe measures 3.7 x 1.0 x 1.1 cm, and is homogenous in echotexture. Isthmus: 2-3 mm thick. No thyroid nodules. Incidental 2-3 mm presumed colloid cysts No definite candidate for parathyroid adenoma is sonographically identified. IMPRESSION: No evidence of parathyroid adenoma sonographically identified. Approved by: Ramone Cobb M.D. on 01/01/2021 at 16:12
== END ==
PROVIDERS: PCP Family Medicine; Referring Provider Family Medicine; Visit Provider Family Medicine
DX: E34.9 Endocrine disorder, unspecified (principal)
CPT/HCPCS: 76536

== ENCOUNTER → 2021-04-02 11:19 | Outpatient (CLI) | payer MEDICARE, SELFPAY ==
[2017-12-08 16:08] VITALS: BMI 31.8
[2021-04-02 12:10] LABS: Hemoglobin 13.1 g/dL (12.0-16.0)
[2021-04-02 12:31] LABS: BUN Creatinine Ratio 14.5 (6-22); Blood Urea Nitrogen 19 mg/dL (7-17); Calcium 9.5 mg/dL (8.4-10.2); Carbon Dioxide 30 mmol/L (22-32); Chloride 102 mmol/L (98-107); Glucose 112 mg/dL (80-110); HEMOLYSIS < 15 (0-50); Potassium 4.4 mmol/L (3.4-5.1); Sodium 139 mmol/L (137-145)
[2021-04-02 15:15] LABS: Microalbumin Urine Random 1.8 mg/dL (0-1.6)
[2021-04-03 08:13] LABS: Parathyroid Hormone Int 61 pg/mL (15-65)
== END ==
PROVIDERS: PCP Family Medicine; Referring Provider Student in an Organized Health Care Education/Training Program; Visit Provider Student in an Organized Health Care Education/Training Program
DX: N05.9 Unspecified nephritic syndrome with unspecified morphologic changes (principal); D64.9 Anemia, unspecified; N25.81 Secondary hyperparathyroidism of renal origin; R80.9 Proteinuria, unspecified
CPT/HCPCS: 36415; 80048; 82043; 82570; 83970; 85014; 85018

== ENCOUNTER → 2021-10-03 11:31 | Outpatient (CLI) | payer MEDICARE, SELFPAY ==
[2017-12-08 16:08] VITALS: BMI 31.8
[2021-10-03 12:50] LABS: Hemoglobin 13.4 g/dL (12.0-16.0)
[2021-10-03 13:16] LABS: BUN Creatinine Ratio 18.2 (6-22); Blood Urea Nitrogen 22 mg/dL (7-17); Calcium 9.1 mg/dL (8.4-10.2); Carbon Dioxide 27 mmol/L (22-32); Chloride 103 mmol/L (98-107); Estimated Glomerular Filt Rate 45 mL/min (>60); Glucose 90 mg/dL (80-110); HEMOLYSIS < 15 (0-50); Potassium 4.2 mmol/L (3.4-5.1); Sodium 139 mmol/L (137-145)
[2021-10-03 17:29] LABS: Protein (Total) Urine Random 13 mg/dL (0-12)
[2021-10-03 17:45] LABS: Creatinine Urine Random 99.4 mg/dL; Protein Creatinine Ratio Urine 0.13 GRAM/24H
[2021-10-04 06:48] LABS: Parathyroid Hormone Int 55 pg/mL (15-65)
== END ==
PROVIDERS: PCP Family Medicine; Referring Provider Student in an Organized Health Care Education/Training Program; Visit Provider Student in an Organized Health Care Education/Training Program
DX: N05.9 Unspecified nephritic syndrome with unspecified morphologic changes (principal); D64.9 Anemia, unspecified; N25.81 Secondary hyperparathyroidism of renal origin; R80.9 Proteinuria, unspecified
CPT/HCPCS: 36415; 80048; 82570; 83970; 84156; 85014; 85018

== ENCOUNTER → 2022-02-28 15:09 | Outpatient (CLI) | payer MEDICARE, SELFPAY ==
[2017-12-08 16:08] VITALS: BMI 31.8
[2022-02-28 15:48] LABS: Add Manual Diff / Slide Review NO; Basophils Absolute Auto 100 /uL (0-100); Basophils Percent Auto 0.7 % (0-2); Eosinophils Absolute Auto 300 /uL (0-450); Eosinophils Percent Auto 4.1 % (2-4); Hemoglobin 13.6 g/dL (12.0-16.0); Lymphocytes Absolute Auto 2300 /uL (1100-4500); Lymphocytes Percent Auto 31.8 % (25-40); Mean Corpuscular HGB Conc 33.1 % (30-36); Mean Corpuscular Hemoglobin 28.2 PG (26-34); Mean Corpuscular Volume 85.2 fL (80-100); Monocytes Absolute Auto 500 /uL (0-900); Monocytes Percent Auto 6.4 % (3-14); Neutrophils Absolute Auto 4200 /uL (1500-7000); Platelet Count 282 X10^3/uL (150-400); Red Blood Cell Count 4.81 X10^6/uL (4.0-5.2); Red Cell Distribution Width 14.1 % (11.6-14.8); White Blood Cell Count 7.3 X10^3/uL (4.5-11.0)
[2022-02-28 16:16] LABS: Alanine Aminotransferase 15 IU/L (<35); Albumin 4.2 g/dL (3.5-5.0); Albumin Globulin Ratio 1.2 (1.0-2.8); Alkaline Phosphatase 117 U/L (38-126); Aspartate Aminotransferase 28 IU/L (14-36); Bilirubin Total 0.7 mg/dL (0.2-1.3); Blood Urea Nitrogen 24 mg/dL (7-17); Calcium 8.9 mg/dL (8.4-10.2); Carbon Dioxide 27 mmol/L (22-32); Chloride 103 mmol/L (98-107); Estimated Glomerular Filt Rate 45 mL/min (>60); Globulin 3.4 g/dL (1.7-4.1); Glucose 108 mg/dL (80-110); Potassium 4.2 mmol/L (3.4-5.1); Sodium 140 mmol/L (137-145); Total Protein 7.6 g/dL (6.3-8.2)
[2022-02-28 16:25] LABS: HEMOLYSIS 61 (0-50)
[2022-02-28 16:56] LABS: Free T4, Direct Thyroxine 1.41 ng/dL (0.78-2.19)
[2022-02-28 17:14] LABS: Thyroid Stimulating Hormone 2.11 uIU/mL (0.47-4.68)
[2022-02-28 17:32] LABS: Creatinine Urine Random 87.9 mg/dL
[2022-02-28 18:04] LABS: Protein (Total) Urine Random < 5 mg/dL (0-12); Protein Creatinine Ratio Urine 0.05 GRAM/24H
[2022-03-02 07:10] LABS: Parathyroid Hormone Int 42 pg/mL (15-65)
== END ==
PROVIDERS: PCP Family Medicine; Referring Provider Student in an Organized Health Care Education/Training Program; Visit Provider Student in an Organized Health Care Education/Training Program
DX: Z00.00 Encounter for general adult medical examination without abnormal findings (principal); D64.9 Anemia, unspecified; N25.81 Secondary hyperparathyroidism of renal origin; R80.9 Proteinuria, unspecified; E03.9 Hypothyroidism, unspecified; I10 Essential (primary) hypertension; N18.9 Chronic kidney disease, unspecified
CPT/HCPCS: 36415; 80053; 82570; 83970; 84156; 84439; 84443; 85025

== ENCOUNTER → 2022-06-07 09:11 | Outpatient (CLI) | payer MEDICARE, SELFPAY ==
[2017-12-08 16:08] VITALS: BMI 31.8
[2022-06-07 10:45] LABS: Alanine Aminotransferase 13 IU/L (<35); Albumin 4.2 g/dL (3.5-5.0); Albumin Globulin Ratio 1.2 (1.0-2.8); Alkaline Phosphatase 124 U/L (38-126); Aspartate Aminotransferase 25 IU/L (14-36); BUN Creatinine Ratio 17.6 (6-22); Bilirubin Total 0.6 mg/dL (0.2-1.3); Blood Urea Nitrogen 22 mg/dL (7-17); Calcium 9.3 mg/dL (8.4-10.2); Carbon Dioxide 30 mmol/L (22-32); Chloride 102 mmol/L (98-107); Estimated Glomerular Filt Rate 43 mL/min (>60); Globulin 3.4 g/dL (1.7-4.1); Glucose 89 mg/dL (80-110); HEMOLYSIS < 15 (0-50); Potassium 4.5 mmol/L (3.4-5.1); Sodium 140 mmol/L (137-145); Total Protein 7.6 g/dL (6.3-8.2)
[2022-06-07 11:02] LABS: Free T4, Direct Thyroxine 1.66 ng/dL (0.78-2.19)
[2022-06-07 11:16] LABS: Thyroid Stimulating Hormone 2.34 uIU/mL (0.47-4.68)
== END ==
PROVIDERS: PCP Family Medicine; Referring Provider Family Medicine; Visit Provider Family Medicine
DX: E03.9 Hypothyroidism, unspecified (principal); I10 Essential (primary) hypertension; R74.8 Abnormal levels of other serum enzymes
CPT/HCPCS: 36415; 80053; 84439; 84443

== ENCOUNTER → 2023-06-12 14:42 | Outpatient (CLI) | payer MEDICARE, SELFPAY ==
[2023-05-07 08:40] VITALS: BMI 31.8
[2023-06-12 15:27] LABS: Add Manual Diff / Slide Review NO; Basophils Absolute Auto 100 /uL (0-100); Basophils Percent Auto 1.1 % (0-2); Eosinophils Absolute Auto 300 /uL (0-450); Eosinophils Percent Auto 5.2 % (2-4); Hematocrit 42.1 % (36-46); Hemoglobin 13.9 g/dL (12.0-16.0); Lymphocytes Absolute Auto 2300 /uL (1100-4500); Lymphocytes Percent Auto 36.8 % (25-40); Mean Corpuscular HGB Conc 33.1 % (30-36); Mean Corpuscular Hemoglobin 28.2 PG (26-34); Mean Corpuscular Volume 85.2 fL (80-100); Monocytes Absolute Auto 500 /uL (0-900); Monocytes Percent Auto 8.3 % (3-14); Neutrophils Absolute Auto 3000 /uL (1500-7000); Neutrophils Percent Auto 48.6 % (50-75); Platelet Count 286 X10^3/uL (150-400); Red Blood Cell Count 4.94 X10^6/uL (4.0-5.2); Red Cell Distribution Width 14.1 % (11.6-14.8); White Blood Cell Count 6.2 X10^3/uL (4.5-11.0)
[2023-06-12 16:14] LABS: Alanine Aminotransferase 13 IU/L (<35); Albumin 4.8 g/dL (3.5-5.0); Albumin Globulin Ratio 1.7 (1.0-2.8); Alkaline Phosphatase 117 U/L (38-126); Aspartate Aminotransferase 25 IU/L (14-36); BUN Creatinine Ratio 13.6 (6-22); Bilirubin Total 0.6 mg/dL (0.2-1.3); Blood Urea Nitrogen 19 mg/dL (7-17); Calcium 9.8 mg/dL (8.4-10.2); Carbon Dioxide 32 mmol/L (22-32); Chloride 103 mmol/L (98-107); Estimated Glomerular Filt Rate 37 mL/min (>60); Globulin 2.8 g/dL (1.7-4.1); Glucose 103 mg/dL (80-110); HEMOLYSIS < 15 (0-50); Potassium 4.4 mmol/L (3.4-5.1); Sodium 141 mmol/L (137-145); Total Protein 7.6 g/dL (6.3-8.2)
[2023-06-12 18:40] LABS: Thyroid Stimulating Hormone 2.62 uIU/mL (0.47-4.68)
[2023-06-14 10:15] LABS: Calcium 9.7 mg/dL (8.7-10.3); Parathyroid Hormone, Intact 51 pg/mL (15-65)
== END ==
LOC: LAB 14:44
PROVIDERS: PCP Family Medicine; Referring Provider Family Medicine; Visit Provider Family Medicine
DX: E03.9 Hypothyroidism, unspecified (principal)
CPT/HCPCS: 36415; 80053; 82310; 83970; 84439; 84443; 85025